=== PATIENT | female | born 1950 | race Caucasian/White ===

== ENCOUNTER 2023-02-28 13:44 | Inpatient (IN) | payer OTHER, BC ==
[~2023-02-28] VITALS: Ht 172.7 cm; Wt 77.1 kg
[2023-02-28] MEDS ORDERED: ROSUVASTATIN CA20 MG PO (18:58)
[2023-02-28] MEDS ORDERED: PROZAC20 MG PO (18:58)
== END 2023-03-03 17:25 | disposition home or self-care (01) | DRG 281 ==
LOC: ER 13:44 → MEDJ 19:33
PROVIDERS: ADMIT Internal Medicine; ATTEND Internal Medicine
PROC: 4A12X4Z Monitoring of Cardiac Electrical Activity, External Approach (ICD-10-PCS; principal; 2023-02-28)
PROC: BW28ZZZ Computerized Tomography (CT Scan) of Head (ICD-10-PCS; 2023-02-28)
PROC: B24BYZZ Ultrasonography of Heart with Aorta using Other Contrast (ICD-10-PCS; 2023-02-28)
PROC: BW21ZZZ Computerized Tomography (CT Scan) of Abdomen and Pelvis (ICD-10-PCS; 2023-03-02)
DX: I21.4 Non-ST elevation (NSTEMI) myocardial infarction (principal); F10.24 Alcohol dependence with alcohol-induced mood disorder; F33.9 Major depressive disorder, recurrent, unspecified; F43.9 Reaction to severe stress, unspecified; I21.A1 Myocardial infarction type 2; R55 Syncope and collapse; T07.XXXA Unspecified multiple injuries, initial encounter; R41.82 Altered mental status, unspecified